=== PATIENT | female | born 1960 | race Caucasian/White ===

== ENCOUNTER 2025-03-19 07:34 | Emergency (ER) | payer MEDICARE, MEDICAID, SELFPAY ==
--- OUTSIDE RECORDS SUMMARY | 2014-07-26 04:44 | XMS_ITS | Continuity of Care Document ---
Author Organization [facility] Address [address] [place] [address] Phone Care Team Providers Care Healthcare Consulting Manager Name Role Phone Angel PIMENTEL, Dulce Maria Unavailable Unavailable Allergies, Adverse Reactions, Alerts Substance Reaction Status Criticality divalproex sodium Other Active No Informa tion mirtazapine Other Active No Information ESCITALOPRAM OXALATE Other Active No Info rmation amitriptyline Other Active No Information oxcarbazepine Other Active No Information Medications Medication Instructions Dosage Effective Dates (start - stop) Status Comments trazodone 100 mg tablet take 2 tablet (200MG) by oral route every day at bedtime - Active Zithromax Z-Laurent 250 mg tablet take 2 tablet (500MG) by oral route every day for 1 day then 1 tablet (250 mg) by oral route once daily for 4 days 500 MG - Active simvastatin 40 mg tablet take 1 tablet (40MG) by oral route every day 40 MG - Active Risperdal 4 mg tablet take 1 tablet (4MG ) by oral route 2 times every day 4 MG - Active Soma 350 mg tablet take 1 tablet (350MG ) by oral route 2 times every day and at bedtime 350 MG - Active potassium chloride ER 20 mEq tablet,extended release(part/cryst) take 1 tablet (20MEQ) by oral route every day with food 20 MEQ - Active furosemide 40 mg tablet take 1 tablet (40MG) by oral route every day 40 MG - Active Spiriva with HandiHaler 18 mcg & inhalation capsules inhale 1 capsule (18MCG) by inhalation route every day - Active ProAir HFA 90 mcg/actuation Aerosol Inhaler inhale 2 puff by inhalation route every 4 hours as needed 2 puff - Active Klonopin 2 mg tablet take 1 tablet (2MG) by oral route 3 times every day 2 MG - Active albuterol sulfate 2.5 mg/3 mL (0.083 %) Neb Solution inhale 3 milliliter (2.5MG) by nebulization route 4 times every day 2.5 MG - Active hydrocodone-acetamino phen 10 mg-325 mg tablet take 1 tablet by oral route every 4 hours as needed for pain - Active Advance Directives Directive Yes / No Effective Date File Name No Information Encounters Encounter Description Practice Location Reason(s) For Visit Diagnoses Date Provider Providers Copied on Encounter [facility], [address], [place], [place], [address] , tel: [phone] [facility] No Information 5 Angel العرقاي. [address] [place] [address], [facility] [address], [place], [id number]. tel: [phone] [facility], [id number] [place] [address], [id number] , tel: [phone] [facility] No Information 3 Ramon Rooney. [address] [place] [address], [id number], . tel: [phone] [facility], [address], [place], [place], [address] , tel: [phone] [facility] No Information 3 Ramon Rooney. [address] [place] [address], [place], [place], [address], [place]. tel: [phone] [facility], [address], [place], [place], [address] , [place] tel: [phone] [facility] No Information 3 Ramon Rooney. [address] [place] [address], [address], [place], [place], [address], . tel:[phone] [facility], [address], [place], [place], [address] , [place] tel: [phone] [facility] No Information 3 Ramon Rooney. [address] [place] [address], [address], [place], [place], [address], [place]. tel: [phone] [facility], [address], [place], [place], [address] , [place] tel: [phone] [facility] Unspecified essential hypertensionOther and unspecified hyperlipidemiaUnspe cified chronic bronchitisTobacco use disorderLumbagoOpio id type dependence, unspecified useDysthymic disorder 3 Ramon Rooney. [address] [place] [address], [address], [place], [place], [address], [place]. tel: [phone] Referring Provider: Toribio Navarro, [address] [place] [address] [address], [place], [place], [address] [place] [address] . tel:[phone] [facility], [address], [place], [place], [address] , tel: [phone] [facility] No Information 3 Ramon Rooney. [address] [place] [address], [address], [place], [place], [address], . tel: [phone] [facility], [address], [place], [place], [address] , [place] tel: [phone] [facility] No Information 2 Ramon Rooney. [address] [place] [address], [address], [place], [place], [address], . tel: [phone] [facility], [address], [place], [place], [address] , [place] tel: [phone] [facility] Vaginal DischargeImmunizati on, DTP/DTaPPersonal history of tobacco useTobacco use disorder 2 Becky Hernandez. [address] [place] [address], [address], [place], [place], [address], [place]. tel:[phone] Referring Provider: Toribio Navarro, [address] [place] [address] [address], [place], [place], [address] [place] [address] . tel:[phone] [facility], [address], [place], [place], [address] , tel: [phone] [facility] Unspecified essential hypertensionOther and unspecified hyperlipidemiaDysth ymic disorderLumbagoOpio id type dependence, unspecified useOsteoarthrosis, unspecified whether generalized or localized, involving ankle and footUnspecified essential hypertensionOther and unspecified hyperlipidemiaDysth ymic disorderTobacco use disorderLumbagoOste oarthrosis, unspecified whether generalized or localized, involving ankle and footOpioid type dependence, unspecified useRoutine general medical examination at a health care facilityUnspecified chronic bronchitisRoutine general medical examination at a health care facility 2 Angel العراقي. [address] [place] [address], [address], [place], [place], [address]. tel:[phone] Referring Provider: Toribio Navarro, [address] [place] [address] [address], [place], [address] . tel:[phone] [facility], [address], [place], [place], [address] , tel: [phone] [facility] Unspecified essential hypertensionActive smokerChronic bronchitis 2 Ramon Rooney. [address] [place] [address], [address], [place], [place], [address], [place]. tel:[phone] [facility], [address], [place], [address] , [place] tel: [phone] [facility] No Information 1 Ramon Rooney. [address] [place] [address], [address], [place], [place], [address], [place]. tel: [phone] [facility], [address], [place], [place], [address] , [place] tel: [phone] [facility] Benign essential hypertensionOther and unspecified hyperlipidemiaDepre ssive disorder, not elsewhere classifiedLumbagoTo bacco use disorder 1 Ramon Rooney. [address] [place] [address], [address], [place], [place], [address], . tel:[phone] Referring Provider: Toribio Navarro [address] [place] [address] [address], [place], [address] . tel:[phone] [facility], [address], [place], [place], [address] , [place] tel: [phone] [facility] COUGHACUTE URI NOS 0 Conversion Doctor. [address] [facility], [place], [address], [place]. [facility], [address], [place], [place], [address] , [place] tel: [phone] [facility] BENIGN HYPERTENSIONHYPERLI PIDEMIA NEC/NOSOBS [facility] W(AC) EXAC 0 Ramon Rooney. [address] [place] [address], [address], [place], [place], [address], [place]. tel:[phone] [facility], [address], [place], [place], [address] , [place] tel: [phone] [facility] VACCIN FOR INFLUENZALONG-TERM USE MEDS NEC 2200 9 Ramon Rooney. [address] [place] [address], [address], [place], [place], [address], [place]. tel:[phone] [facility], [address], [place], [place], [address] , [place] tel: [phone] [facility] ANXIETY STATE NOSCHR AIRWAY OBSTRUCT NEC 3200 8 Ramon Rooney. [address] [place] [address], [address], [place], [place], [address], [place]. tel:[phone] [facility], [address], [place], [place], [address] , [place] tel: [phone] [facility] TOBACCO USE DISORDER 9200 8 Ramon Rooney. [address] [place] [address], [address], [place], [place], [address], [place]. tel:[phone] [facility], [address], [place], [place], [address] , [place] tel: [phone] [facility] RECURR DEPR PSYCHOS-UNSPCHF NOSPAIN IN LIMBLUMBAGODEPRESSI VE DISORDER NECELEV TRANSAMINASE/LDH 8-200 8 Ramon Rooney. [address] [place] [address], [address], [place], [place], [address], . tel:[phone] Family History Family Member Type Diagnosis Age At Onset Father Problem (finding) renal stone Mother Problem (finding) Cancer, brain Immunizations Vaccine Date Status Comments Tdap (Adacel r) administered Source: New Immunization Record flu (split) (3 yrs or older) administered Source: Other Provider 13345 - Pneumococcal_PPV23 administered S ource: Source Unspecified 47552 - Influenza administered Source: So urce Unspecified 69506 - Influenza administered Source: So urce Unspecified 23834 - Influenza administered Source: So urce Unspecified Payers Payer name Insurance type Covered republican ID Authordemetria timo(s) [facility] [id number] Social History Type Description Quantity Date Captured Comments Alcohol Use Details Unknown Caffeine Use Details Unknown Tobacco Use Status No Information Smoking Status No Information Sex Female Chief Complaint And Reason For Visit No Information Reason For Referral Reason For Referral No Information History Of Present Illness Encounter Date Complaint History Of Prese nt Illness No Information Functional Status Date Functional Assessmen t No Information Instructions Date Instruction Additional Infor mation No Information Assessments Type Assessment Date No Information Patient Care Teams Name Effective Dates (start - stop) Status Members No Information
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
--- NOTE | ~2025-03-19 | CT_ITS ---
EXAMINATION: CT hip RT wo con COMPARISON: None HISTORY: hip pain, questionable x-ray TECHNIQUE: Axial images were obtained without IV contrast. Sagittal, coronal reconstruction images were obtained from the axial views. CT scan performed using dose optimization techniques including the following automated exposure control; adjustment of mA and/or kV; use of iterative reconstruction technique. Automatic exposure control was used to reduce radiation dose. Permanent radiation dose record is archived to PACS. FINDINGS: Sequelae of previous surgery noted involving the right femur with remote fracture of the right femoral neck and intertrochanteric femur with irregularity of the cortex although there is no acute fracture identified. Ill-defined areas of lucency noted in the right intertrochanteric femur. No osseous destruction. No joint effusion. Moderate degenerative changes. Intrapelvic soft tissues unremarkable. No intramuscular hemorrhage or subcutaneous fluid collection identified. IMPRESSION: No acute fracture. Sequelae of previous trauma detailed above. Clinically if there is concern for chronic osteomyelitis nuclear medicine WBC scan is suggested. Reviewed, dictated and finalized at location P. IMPRESSION: No acute fracture. Sequelae of previous trauma detailed above. Clin ically if there is concern for chronic osteomyelitis nuclear medicine WBC scan is suggested.
--- NOTE | ~2025-03-19 | XR_ITS ---
EXAMINATION: XR hip RT 2V w AP pelvis, 03/19/2025 8:55 CDT HISTORY: right hip pain COMPARISON: No comparisons available. Findings: Sequelae of previous surgery in the right femur with ill-defined sclerosis noted of the right intertrochanteric femur, there is irregularity of the cortex which may represent sequelae of remote trauma however an acute fracture is difficult to exclude. No significant degenerative changes. Soft tissues unremarkable. Impression: Questionable acute right intertrochanteric fracture. CT recommended Reviewed, dictated and finalized at location P. Impression: Questionable acute right intertrochanteric fracture. CT recommended
[2025-03-19 07:43] VITALS: BP 135/87; PULSE 90; RESP 18; TEMP 36.6; O2SAT 97
--- NOTE | 2025-03-19 07:57 | ED.GENADULT ---
HPI - General Adult General Chief complaint: Extremity Injury, Lower Stated complaint: R hip pain Time Seen by Provider: 03/19/25 07:43 History of Present Illness HPI narrative: 64-year-old female presents to the emergency department for evaluation for increased right hip pain. Patient states she is about 1.5 weeks ago she did increase her workout regiment and feel she may have strained her hip. Patient denies any specific fall or injury. Patient did not take anything for pain control. Related Data Allergies Allergy/AdvReac Type Severity Reaction Status Date / Time amitriptyline (From Elavil) Allergy Intermediate Hallucinati Verified 03/19/25 07:47 ng mirtazapine (From Remeron) Allergy Intermediate Hallucinati Verified 03/19/25 07:47 ng quetiapine (From Seroquel) Allergy Intermediate Hallucinati Verified 03/19/25 07:47 ng divalproex sodium (From AdvReac Intermediate Hallucinati Verified 03/19/25 07:47 Depakote) ng Review of Systems Review of Systems: All systems reviewed & are unremarkable except as noted in HPI and below Exam Narrative: APPEARANCE: Well appearing, no pain, no distress, well-nourished. HEAD: normocephalic, atraumatic. EYES: PERRLA/EOMI, conjunctivae clear. NOSE: Normal no drainage EARS:TMS clear with good light reflex. THROAT: Pharynx clear, no exudate. NECK: Supple. No adenopathy, no masses. RESPIRATORY: Airway patent, respirations nonlabored. Clear to auscultation bilaterally, no rales, rhonchi, wheezing. CARDIOVASCULAR: Regular rate and rhythm without murmurs rubs or gallops. ABDOMINAL: Soft, nontender, nondistended, normal bowel sounds MUSCULOSKELETAL: Reproducible tenderness to the right buttock, negative straight leg test NEURO: Alert. Cranial nerves II through XII intact. Good gait. Good coordination SKIN: Warm, dry. Normal Color Course Vital Signs Vital signs: Vital Signs Temperature 97.9 F 03/19/25 07:43 Pulse Rate 90 03/19/25 07:43 Respiratory Rate 18 03/19/25 07:43 Blood Pressure 135/87 03/19/25 07:43 Pulse Oximetry 97 03/19/25 07:43 Oxygen Delivery Room Air 03/19/25 07:43 Temperature 97.9 F 03/19/25 07:43 Pulse Rate 90 03/19/25 10:41 Respiratory Rate 18 03/19/25 10:41 Blood Pressure 132/94 H 03/19/25 10:41 Pulse Oximetry 98 03/19/25 10:41 Oxygen Delivery Room Air 03/19/25 07:43 Medical Decision Making MDM Narrative Medical decision making narrative: 64 old female presents emergency department for evaluation for worsening right pain after or increasing her workup for she over the last 1.5 weeks. X-ray was negative for acute fracture CT scan was recommended. CT scan shows no acute fracture dislocation. Patient was treated with IM Toradol, p.o. cyclobenzaprine and p.o. Cairo. Patient's exam is consistent with a hip strain versus sciatica. Patient will provide medication for pain control closing Cairo and a muscle relaxant. No clinical concern for osteomyelitis. Patient was updated the results of her workup. Patient was encouraged close follow-up with her primary care physician. All questions concerns were addressed patient was educated on reasons to return to the emergency department. Differential Diagnosis Differential Diagnosis: Hip strain, hip fracture, pelvic fracture, sciatica, arthritis Vital Signs Vital Signs: Vital Signs Temperature 97.9 F 03/19/25 07:43 Pulse Rate 90 03/19/25 07:43 Respiratory Rate 18 03/19/25 07:43 Blood Pressure 135/87 03/19/25 07:43 Pulse Oximetry 97 03/19/25 07:43 Oxygen Delivery Room Air 03/19/25 07:43 Temperature 97.9 F 03/19/25 07:43 Pulse Rate 90 03/19/25 10:41 Respiratory Rate 18 03/19/25 10:41 Blood Pressure 132/94 H 03/19/25 10:41 Pulse Oximetry 98 03/19/25 10:41 Oxygen Delivery Room Air 03/19/25 07:43 Imaging Data Radiologist's impression: Impressions Hip/Pelvis X-Ray 03/19/25 09:05 Impression: Questionable acute right intertrochanteric fracture. CT recommended Hip CT 03/19/25 09:32 IMPRESSION: No acute fracture. Sequelae of previous trauma detailed above. Clinically if there is concern for chronic osteomyelitis nuclear medicine WBC scan is suggested. Discharge Plan Discharge Clinical Impression: Strain of right hip Patient Disposition: Home Condition: Stable Instructions: Antibiotic Form, Hip Pain (ED) Additional Instructions: Naproxen for pain control, Cairo as needed for additional pain control. Flexeril as needed for muscle spasm. Decrease the frequency of your work out and have close follow-up with your primary care physician. If you have any worsening symptoms then please call or return to the emergency department. Patient Language: [place] Prescriptions: New naproxen [Naprosyn] 500 mg tablet 500 mg PO BID 7 Days Qty: 14 0RF hydrocodone-acetaminophen 5-325 mg tablet 1 tablet PO Q12H PRN (Reason: pain) Qty: 14 0RF cyclobenzaprine 10 mg tablet 10 mg PO BID PRN (Reason: muscle spasm) Qty: 14 0RF Follow-up/Referrals: PHYSICIAN NOT ON STAFF,NONSTAFF [Non-Staff]
[2025-03-19] MEDS: KETOROLAC 30 MG/ML VIAL (*BKC) IM (08:12)
[2025-03-19] MEDS: CYCLOBENZAPRINE HCL 10 MG TABLET PO (08:15)
--- OUTSIDE RECORDS SUMMARY | 2025-03-19 08:27 | XMS_ITS | Patient Health Record ---
Author Organization [facility] Address [address] [place] [address] Care Team Providers Care Construction Economist Name Role Phone Satnam Cai Primary Care Provider Jason Watts Unavailable [phone] Luz Kuhn Unavailable [phone] Allergies Allergen (clinical drug ingredient) Drug/Non Drug Allergy documented on EMR Reaction Allergy Type Onset Date Status valproate Depakote Unknown Drug Allergy Active escitalopram Lexapro Unknown Drug Allergy Acti ve mirtazapine Remeron Unknown Drug Allergy Activ e quetiapine SEROquel Unknown Drug Allergy Active oxcarbazepine Trileptal Unknown Drug Allergy Act khari Elavil Unknown Drug Allergy Active Results Component Value Reference Range Notes Test, Urine Reviewed date:03/09/2025 10:09:46 AM Interpretation: Performing Lab: Notes/Report: Test, Urine neg Negative - Negative Breathalyzer Reviewed date:03/09/2025 10:09:46 AM Interpretation: Performing Lab: Notes/Report: ASHELY 0.000 14 Panel Urine Drug Screen Reviewed date:03/09/2025 10:09:46 AM Interpretation: Performing Lab: Notes/Report: THC pos KYLER neg MOP (OPI) neg AMP neg MET neg BAR neg BZO pos MDMA neg MTD neg OXY neg PCP neg BUP neg TCA pos FTY neg CBC With Differential/Platel et* Reviewed date:03/12/2025 08:29:31 AM Interpretation: Performing Lab:[facility] [place], [address] [facility] Phone - [phone], Director - Angelika Notes/Report: WBC 10.0 3.4-10.8 x10E3/uL RBC 4.42 3.77-5.28 x10E6/uL Hemoglobin 13.8 11.1-15.9 g/dL Hematocrit 41.9 34.0-46.6 % MCV 95 79-97 fL MCH 31.2 26.6-33.0 pg MCHC 32.9 31.5-35.7 g/dL RDW 12.5 11.7-15.4 % Platelets 173 150-450 x10E3/uL Neutrophils 76 Not Estab. % Lymphs 13 Not Estab. % Monocytes 8 Not Estab. % Eos 1 Not Estab. % Basos 1 Not Estab. % Neutrophils (Absolute) 7.7 1.4-7.0 x10E3/uL Lymphs (Absolute) 1.3 0.7-3.1 x10E3/uL Monocytes(Absolute) 0.8 0.1-0.9 x10E3/uL Eos (Absolute) 0.1 0.0-0.4 x10E3/uL Baso (Absolute) 0.1 0.0-0.2 x10E3/uL Immature Granulocytes 1 Not Estab. % Immature Grans (Abs) 0.1 0.0-0.1 x10E3/uL CMP 14 Comprehensive Metabol ic Panel* Reviewed date:03/12/2025 08:29:31 AM Interpretation: Performing Lab:[facility] [place], [address], [place], Phone - [phone], Director - Angelika Notes/Report: Glucose 96 70-99 mg/dL BUN 14 8-27 mg/dL Creatinine 0.71 0.57-1.00 mg/dL eGFR 95 >59 mL/min/1.73 BUN/Creatinine Ratio 20 12-28 Sodium 139 134-144 mmol/L Potassium 4.0 3.5-5.2 mmol/L Chloride 97 96-106 mmol/L Carbon Dioxide, Total 27 20-29 mmol/L Calcium 9.6 8.7-10.3 mg/dL Protein, Total 6.9 6.0-8.5 g/dL Albumin 4.9 3.9-4.9 g/dL Globulin, Total 2.0 1.5-4.5 g/dL Bilirubin, Total 0.3 0.0-1.2 mg/dL Alkaline Phosphatase 103 49-135 IU/L AST (SGOT) 60 0-40 IU/L ALT (SGPT) 78 0-32 IU/L QuantiFERON-TB Gold Plus (18 [id number]) Reviewed date:03/12/2025 08:29:31 AM Interpretation: Performing Lab:[facility], [address], [place], Phone - [phone], Director - Angelika Notes/Report: QuantiFERON Incubation Incubation performed. QuantiFERON-TB Gold Plus Negative Negative No response to M tuberculosis antigens detected. Infection with M tuberculosis is unlikely, but high risk individuals should be considered for additional testing (ATS/IDSA/CDC Clinical Practice Guidelines, 2017). The reference range is an Antigen minus Nil result of <0.35 IU/mL. Chemiluminescence immunoassay methodology QuantiFERON Criteria QuantiFERON-TB Gold Plus is a qualitative indirect test for M tuberculosis infection (including disease) and is intended for use in conjunction with risk assessment, radiography, and other medical and diagnostic evaluations. The QuantiFERON-TB Gold Plus result is determined by subtracting the Nil value from either TB antigen (Ag) value. The Mitogen tube serves as a control for the test. QuantiFERON TB1 Ag Value 0.04 QuantiFERON TB2 Ag Value 0.03 QuantiFERON Nil Value 0.04 QuantiFERON Mitogen Value >10.00 Reason For Referral No Information Medications Medication SIG (Take, Route, Frequency, Duration) Notes Start Date End Date Status busPIRone HCl 10 MG 1 tablet Orally 3 times a day; Duration: 30 days Active Potassium 99 MG 1 tablet Orally Once a day Active Magnesium 200 MG 2 tablets with a meal Orally Once a day Active Furosemide 20 MG 1 tablet Orally Once a day Active Omeprazole 40 MG 1 capsule 1/2 to 1 hour before morning meal Orally Once a day Active traZODone HCl 100 MG 2 tablets at bedtime Orally daily Active risperiDONE 0.25 MG 1 tablet as needed for anxiety or panic Orally twice a day; Duration: 30 days Client on CRU. 03/17/2025 Active Acyclovir 400 MG 1 tablet Orally Twice a day Active Daily Fiber Active Cyclobenzaprine HCl 10 MG 1 tablet at bedtime as needed Orally 3 times a day Active Venlafaxine HCl ER 150 MG 1 tablet with food Orally Once a day Active risperiDONE 0.5 MG 1 tablet at bedtime (scheduled) Orally Once a day; Duration: 30 days Client on CRU. 03/17/2025 Active Losartan Potassium 100 MG 1 tablet Orally Once a day Active Adderall 10 MG 1 tablet Orally Twice a day Active Simvastatin 40 MG 1 tablet in the evening Orally Once a day Active Vitamin B1 100 MG 1 tablet Orally Once a day Active Nicotine 7 MG/24HR 1 patch to skin Transdermal Once a day, removing at bedtime; Duration: 14 days 03/09/2025 Active Melatonin 5 MG 1 tablet at bedtime as needed Orally Once a day; Duration: 30 days 03/09/2025 Active Famotidine 40 MG 1 tablet Orally Once a day Active hydrOXYzine Pamoate 25 MG 1-2 capsules Orally every 4 hours as needed for anxiety, agitation, or inability to sleep. Do not give within 4 hours of diphenhydramine.; Duration: 30 days 03/09/2025 Active Amoxicillin 500 MG 4 capsule Orally every 8 hrs Active Spiriva HandiHaler 18 MCG 1 capsule by inhaling the contents of the capsule using the HandiHaler device Inhalation Once a day Active Resperal Not-Taking Biofreeze Roll-On 4 % 1 application as needed Externally Three times a day Active Multi Vitamin - 1 tablet Orally Once a day; Duration: 30 days 03/09/2025 Active Albuterol Sulfate HFA 108 (90 Base) MCG/ACT 1 puff as needed Inhalation every 4 hrs Active Nicotine Polacrilex 2 MG 1 lozenge as needed for nicotine cravings Mouth/Throat Up to once per hour (maximum of 15 lozenges per day); Duration: 7 days 03/09/2025 Active Fluticasone Propionate (Inhal) 250 MCG/ACT 1 puff Inhalation Twice a day Active Pregabalin 100 MG 1 capsule Orally 3 times a day Active Zinc 100 MG 1 tablet Orally Once a day Active FLUoxetine HCl 20 MG 1 capsule Orally Once a day Active Dicyclomine HCl 20 MG 1 tablet Orally 4 times a day Active Social History Tobacco Use: Social History Observation Description Date Details (start date - stop date) Current Smoker NA - NA Sex Assigned At : Social History Observation Description Sex Assigned At Female PRAPARE Question Answer Notes Date Completed/Updated: 03/09/2025 What is your current housing situation? I have h ousing Are you worried about losing your housing? No What is the highest level of school that you have finished? More than high school What is your current work situation? Oth erwise unemployed but not seeking work (ex. 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 Check all that apply I do not have problems meeting my needs Has lack of transportation k ept you from medical appointments, meetings, work or from getting things needed for daily living? No How often do you see or talk to people that you care about and feel close to? (For example: talking to friends on the phone, visiting friends or family, going to gnosticism or club meetings) More than 5 times a week How stressed are you? Stress is when someone feels tense, nervous, anxious, or can\t sleep at night because their mind is troubled Quite a bit In the past year have you sp ent more than 2 nights in a row in a nursing home, shelter, jail center, or juvenile correctional facility? No Are you a refugee? I choose not to answer this q uestion What country are you from? I choose not to answe r this question Do you feel physically and e motionally safe where you currently live? Yes In the past year, have you b een afraid of your partner or ex-partner? No PRAPARE Score: 3 Enabling Services Provided? Yes Please specify Case Management Asse ssment First Visit Tobacco Control (Standard) Question Answer Notes Tobacco use: Current smoker How often do you smoke cigarettes? Every day How many cigarettes a day do you smoke? 6-10 Problems Problem Type SNOMED Code ICD Code Onset Dates Problem Status W/U Status Risk Notes Problem Hypertension (91789752) Hypertension (I10) Active confirmed Problem Gastroesophageal reflux disease (362647231) GERD (gastroesophageal reflux disease) (K21.9) Active confirmed Problem Substance abuse (7207852745) Substance abuse (F19.10) Active confirmed Problem Posttraumatic stress disorder (66303945) PTSD (post-traumatic stress disorder) (F43.10) Active confirmed Problem COPD - Chronic obstructive pulmonary disease (34799629) COPD (chronic obstructive pulmonary disease) (J44.9) Active confirmed Problem Schizoaffective disorder (64094019) Schizoaffective disorder (F25.9) Active confirmed Problem Overweight (587508431) Over weight (E66.3) Active confirmed Problem Alcohol use disorder (9925827590) Alcohol use disorder (F10.99) Active confirmed Problem Physical examination, complete (88087608) Adult general medical examination (Z00.00) Active confirmed Vital Signs Heart Rate 74 /min 03/09/2025 Temperature 98.4 degrees Fahrenheit 03/09/2025 Respiratory Rate 18 /min 03/09/2025 Oximetry 95 % 03/09/2025 Blood pressure diastolic 90 mm Hg 03/09/2025 Height 65 inches in 03/17/2025 Blood pressure systolic 132 mm Hg 03/09/2025 Weight 177.4 lbs lbs 03/17/2025 BMI 29.52 kg/m2 03/17/2025 Encounters Encounter Location Date Provider Diagnosis [address] [place] [address] 03/17/2025 Jason Watts Over weight E66.3 ; Schizoaffective disorder F25.9 ; Alcohol use disorder F10.99 and PTSD (post-traumatic stress disorder) F43.10 [place] [address] [address] [facility] [place] [address] 03/09/2025 Satnam Cai Adult general medica l examination Z00.00 ; Over weight E66.3 ; Hypertension I10 ; COPD (chronic obstructive pulmonary disease) J44.9 ; GERD (gastroesophageal reflux disease) K21.9 and Alcohol use disorder F10.99 [place] [address] [place] [address] 03/09/2025 Luz Kuhn Over weight E66.3 an d Substance abuse F19.10 [place] [address] [place] [address] 03/09/2025 Satnam Cai Assessments Encounter Date Diagnosis (ICD Code) Assessment Notes Treatment Notes Treatment Clinical Notes Section Notes 03/09/2025 Adult general medical examination (ICD-10 - Z00.00) Admit to the Mental Health/Crisis Residential Unit and initiate standing/protocol orders: The following PRN medications may be self-administered by patients under the supervision of approved staff or administered by nursing staff: Ibuprofen 200mg, 2-4 tablets by mouth (with food) every 6 hours as needed for pain (unless on lithium). (NOTE: Ibuprofen and acetaminophen may be given together, but alternating is recommended for continuous pain relief. Guaifenesin 400 mg, 1 tablet by mouth every four hours as needed for cough and chest congestion (take with large glass of water). Loratadine 10 mg, 1 tablet by mouth daily as needed for allergies, watery itchy eyes, or sinus drainage. Throat Lozenges, up to 4 tablets by mouth every three to four hours as needed for sore throat. Antacid tablets, 1-2 tablets by mouth every one to two hours as needed for indigestion or heart burn. If the client prefers liquid, could use: Liquid Antacid : 1 ounce by mouth up to four times daily as needed for indigestion or heartburn Omeprazole 20mg, 1 capsule by mouth once daily for 14 days for frequent heartburn (frequent heartburn is more than 2 episodes per week). Do not exceed 14 days. Do not give to client already taking a proton-pump inhibitor: esomeprazole (Nexium), lansoprazole (Prevacid), pantoprazole (Protonix), rabeprazole (Aciphex), dexlansoprazole (Dexilant) Zofran ODT disintegrating (under the tongue) 4 mg, 1-2 tablets every 8 hours as needed for nausea/vomiting. Milk of Magnesia (MOM): 1 ounce (30 milliliters) by mouth every day as needed for constipation. OR Miralax: Stir and fully dissolve 17 grams (1 packet or 1 capful to measured line) in any 4 to 8 ounces of beverage then drink once daily for constipation. Do not use for more than 7 days. OR Docusate 100 mg, 1 capsule twice daily as needed for constipation Hydrocortisone 1% Cream, apply topically (to the skin) to the affected area up to three times daily as needed for itching or inflammation (avoid eyes and genitals). 2% Antifungal Cream, apply topically (to the skin) as directed as needed to affected areas for athlete's foot or jock itch. Triple Antibiotic Ointment, apply topically (to the skin) up to three times daily as needed for minor cuts and scrapes. Carmex or Chapstick, apply topically (to the skin) as needed for chapped lips and skin. Orajel, apply to affected areas as needed for mouth or tooth pain. Lubricating Eye Drops, instill 1-2 drops to the affected eye(s) as needed for dry/irritated eye(s). Hemorrhoid medications, apply to affected area according to directions as needed for hemorrhoid discomfort and itch. Nix (Permethrin 1%) cream 2 ounces, apply topically (to the skin) as directed as needed for head lice. Sunscreen 30 SPF, Apply to exposed skin prior to exposure to sun. The following PRN medications must be approved by nursing staff before self-administratio n by patients: Diphenhydramine 25 mg, 2 tablets by mouth every 4 hours as needed for allergic reaction or itchy rash. Caution: Do not use hydroxyzine within 4 hours of diphenhydramine and vice versa. Loperamide 2 mg capsules, may give two capsules by mouth for the initial dose, followed by one capsule up to 3 times a day as needed for diarrhea. Acetaminophen 500 mg, 1 - 2 tablets by mouth every six hours as needed for pain. (NOTE: Ibuprofen and acetaminophen may be given together, but alternating is recommended for continuous pain relief). Oxygen-May administer oxygen 2L/min via nasal cannula if O2 saturation is less than 92%, AND client complains of shortness of breath. Target O2 saturation is 94-98%. Caution: Remember too much oxygen can be detrimental to a client with COPD. Oxygen is a drug and should be delivered by trained staff only. Nurses may remove superficial splinters and sutures from skin lacerations. May apply gauze or bandages to any weeping wounds. Contact nursing if there is pus, a foul odor, increased pain/redness/swell ing, or if soaking through bandages. 03/09/2025 Over weight (ICD-10 - E66.3) 03/17/2025 Over weight (ICD-10 - E66.3) 03/17/2025 Schizoaffective disorder (ICD-10 - F25.9) 03/09/2025 Substance abuse (ICD-10 - F19.10) 03/09/2025 Hypertension (ICD-10 - I10) 03/09/2025 Over weight (ICD-10 - E66.3) 03/09/2025 COPD (chronic obstructive pulmonary disease) (ICD-10 - J44.9) 03/17/2025 Alcohol use disorder (ICD-10 - F10.99) 03/09/2025 GERD (gastroesophageal reflux disease) (ICD-10 - K21.9) 03/17/2025 PTSD (post-traumatic stress disorder) (ICD-10 - F43.10) 03/09/2025 Alcohol use disorder (ICD-10 - F10.99) 03/09/2025 Other Continue treatment as recommended by [facility] staff. Encouraged patient to obtain routine medical care with patient's own primary care provider or establish as a patient at [facility] if no current primary care provider. 03/09/2025 Other Clinician met w ith client to assess needs for residential services. Clinician gathered information regarding historical presentation of mental health and substance use symptoms including withdrawal, HIV Risk assessment, psychiatric hospitalization history and presenting concern. Clinician conducted PHQ9 and CSSRS assessments as well as social drivers of health screening for the purposes of identifying additional service needs. Plan Of Treatment No Information Insurance Providers Payer Name Payer Address Payer Phone Subscriber Number Group Number Insured Name Patient Relationship to Insured Coverage Start Date Coverage End Date [facility] [address] [place] [address] [id number] Ashley Cano Self - patient is the insured 5 Medical (General) History Medical History History ICD Code COPD asthma ADD High BP neuropathy schizoaffective disorder ptsd Surgical History Surgery Date(Month/Year) hysterectomy hip repair umbilical hernia knee surgery Hospitalization History Reason Date(Month/Year) [facility] 03/2025
[2025-03-19] MEDS: HYDROcodone/acetaminophen (*CRX) 7.5-325 MG TABLET 1 TAB PO (09:12)
[2025-03-19 10:41] VITALS: BP 132/94; PULSE 90; RESP 18; O2SAT 98
--- NOTE | 2025-03-19 10:44 | PC.NURSE ---
Refuses crutches. States she wants to get a cane.
== END 2025-03-19 10:44 | disposition home or self-care (01) ==
PROVIDERS: Emergency Provider Emergency Medicine
DX: S76.011A Strain of muscle, fascia and tendon of right hip, initial encounter (principal); X58.XXXA Exposure to other specified factors, initial encounter
CPT/HCPCS: 73502; 73700; 96372; 99284; A9270; J1885